=== PATIENT | female | born 1955 | race Caucasian/White ===

== ENCOUNTER 2017-10-28 13:11 | Inpatient (IN) | payer SELFPAY ==
[2017-10-28] VITALS (23 sets, daily range): BP systolic 126–182; BP diastolic 84–145; PULSE 87–159; RESP 14–31; TEMP 36.4–36.8; O2SAT 93–97; BMI 45.4; BMI 44.6
--- NOTE | 2017-10-28 13:41 | EKG12_ITS ---
Test Reason : A FIB Blood Pressure : / mmHG Vent. Rate : 172 BPM Atrial Rate : 150 BPM P-R Int : 000 ms QRS Dur : 076 ms QT Int : 284 ms P-R-T Axes : 000 -09 015 degrees QTc Int : 480 ms Atrial fibrillation Nonspecific ST and T wave abnormality Abnormal ECG Confirmed by JONATHAN CANAS, AIRAM ([id number]), assistant film editor SHANELLE SAMS ([id number]) on 10/30/2017 1:00:47 PM Referred By: WILTON Confirmed By:AIRAM CASTILLO MD
--- NOTE | 2017-10-28 13:41 | RAD_ITS ---
STUDY: X-RAY CHEST REASON FOR EXAM: Female, 62 years old. Palpitations. TECHNIQUE: Single AP portable view of the chest. COMPARISON: None. FINDINGS: EKG electrodes are seen. There is evidence of vascular congestion in keeping with mild degree of CHF. Blunting of both costophrenic angles. There is moderate cardiac enlargement. Normal mediastinum and roula. Normal visualized pulmonary arteries. There is atherosclerotic tortuosity of the aortic arch and descending thoracic aorta. Normal visualized thoracic spine. Normal visualized ribs, clavicles, and shoulders. There is no demonstrated abnormality of the visualized soft tissue structures of the upper abdomen. RAD/Chest 1 View (Portable) IMPRESSION: Mild CHF with blunting of both costophrenic angles. Cardiomegaly. Electronically Signed: Alvaro Palacio MD at 14:06 EST Tel [phone], Service support ,
--- NOTE | 2017-10-28 13:44 | ED.DCSUM_ITS ---
- ER Visit Summary Date of Service: 10/28/17 Chief Complaint: [Palpitations] History of Present Illness: The patient is a 62 F [presents the emergency department with upper abdominal pain, shortness of breath, and palpitations since evening. She started with upper abdominal pain more in the middle evening. Friday afternoon she had some chest discomfort and shortness of breath. No lightheadedness or dizziness. No previous history of heart problems. She has had palpitations off and on for the last several years. She follows with Dr. Vallejo. She does have high blood pressure. She has a family history of a brother with a heart transplant in several bypass surgeries prior to that. Her other brother does have atrial fibrillation. She has no PE or DVT risk factors.] Physical Examination: [] Blood pressure 164/84 heart rate 151 Obese no acute distress WN WD NAD PERRL EOMI MMM NECK supple and nontender, no masses Irregularly irregular tachycardic no murmur rub or gallop, no peripheral edema, symmetric radial pulses CTAB no respiratory distress ABDOMEN is soft and nontender, normal bowel sounds, no distension, no rebound or guarding SKIN is warm and dry no rashes Alert and Oriented x3, CN II-XII in tact, no motor or sensory deficits, gait normal No lymphadenopathy Anxious Test Results: [] Emergency Department Course and Treatment: [EKG was obtained and is atrial fibrillation with rapid ventricular response at a rate of [address]-T wave changes likely rate related. Patient was given 20 mg of diltiazem. Her heart rate improved to the 120s. Screening labs show mild elevation of the T bili. Chest x-ray shows mild CHF. Patient was started on a diltiazem drip. She will be admitted to the hospital. She remained stable.] Treatment Plan: [] Disposition: [Admit] Impression: [1. Atrial fibrillation with RVR 2. Mild CHF] This note was generated with [employer] dictation software. It may contain incorrect words, spelling, and punctuation that were not noted in review of the chart prior to signing ED Disposition - Plan for ED Patient: Chief Complaint: Palpitations Referrals: NOT,DEFINED [NON-STAFF] -
[2017-10-28] MEDS: 0.9% Normal Saline 1,000 ML 150 ML IV (13:51)
[2017-10-28] MEDS: dilTIAZem 25 MG/5 ML Vial 20 MG IV BOLUS (13:51)
[2017-10-28] MEDS: Aspirin 81 MG TAB.CHEW 324 MG PO (13:51)
[2017-10-28 13:58] LABS: Absolute Lymphocyte Count 1.66 X10^3/ul (0.83-4.51); Absolute Neutrophil Count 5.9 X10^3/uL (2.0-7.7); Basophil# 0.03 X10^3/uL; Basophil% 0.4 % (0-1); Eosinophil# 0.11 X10^3/uL; Eosinophils% 1.3 % (0-5); Hematocrit 45.9 % (37-47); Hemoglobin 15.1 g/dl (12.0-15.0); Lymphocyte # 1.66 X10^3/ul (4.0); Lymphocyte % 20.3 % (19-41); Mean Corp Hgb Conc 32.9 g/gl (32-36); Mean Corpuscular Hgb 28.9 pg (27.0-32.0); Mean Corpuscular Volume 87.9 fL (81-99); Mean Platelet Vol. 11.5 fl (6.2-12.0); Monocyte# 0.44 X10^3/uL; Monocyte% 5.4 % (0-10); Neutrophil # 5.92 X10^3/uL (2.7-7.7); Neutrophil % 72.5 % (47-70); Platelet Count 236 K/mm3 (150-450); RBC Distribution Width CV 14.4 % (11.6-14.6); Red Blood Count 5.22 M/mm3 (4.2-5.4); White Blood Count 8.2 K/mm3 (4.4-11.0)
[2017-10-28 14:00] LABS: POSITIVE COUNT NO; POSITIVE DIFFERENTIAL NO; POSITIVE MORPHOLOGY NO
[2017-10-28 14:59] LABS: ALB/GLOB Ratio 1.3 RATIO (0.9-2.4); AST(SGOT) 37 U/L (15-37); Alanine Aminotransfer ALT/SGPT 53 U/L (13-56); Albumin, Serum 4.3 g/dL (3.2-5.0); Alkaline Phosphatase 76 U/L (45-117); Anion Gap 11 (5-15); BUN 15 mg/dL (7-18); BUN/Creat Ratio 15.9 RATIO (10-20); Calcium,Total 9.2 mg/dL (8.5-10.1); Chloride 110 mmol/L (98-107); Creatinine, Serum 0.94 mg/dL (0.55-1.02); EST Glomerular Filtration Rate 64 mL/min (>60); Est Glom Filt Rate - Afr Amer 77 mL/min (>60); Estimated Creatinine Clearance 54.41 ml/min; Globulin 3.4 g/dL (2.2-4.2); Glucose 135 mg/dL (74-106); Potassium 3.6 mmol/L (3.5-5.1); Protein, Total 7.7 g/dL (6.4-8.2); Sodium Level 143 mmol/L (136-145)
--- NOTE | 2017-10-28 16:14 | NURSING ---
DR KIKA BRIGGS
--- NOTE | 2017-10-28 17:23 | NURSING ---
105 AFIB WITH RVR IMAMURA
[2017-10-28] MEDS: Furosemide 40 MG/4 ML Vial IV ×2 (17:43→21:44)
[2017-10-28 19:11] LABS: International Normalized Ratio 1.1; Prothrombin Time (Protime)PT. 13.8 SECONDS (11.7-14.9)
[2017-10-28 19:12] LABS: Partial Thromboplast Time 48.1 Seconds (24.1-36.2)
[2017-10-28] MEDS: HEPARIN/D5w 25,000 UNITS 25,000 UNITS/250 ML IV.SOLN. 16 UNITS IV (19:18)
--- NOTE | 2017-10-28 19:56 | PCM.HP.STD ---
Problem List (1) Atrial fibrillation with RVR Status: Acute History of Present Illness Date of Admission: 10/28/17 Chief Complaint: Palpitation, abdominal pain Patient is a 62 years old female, presents with complaining of palpitation for 5 days. She thought that her heart was racing. She also had intermittent shortness of breath with symptoms of orthopnea, but denied of any peripheral edema. She denied of any cough or chest pain, but had some intermittent epigastric discomfort which was unaffected by meals. In ED, her heart rate was in 170's. Diltiazem drip was started. About 3 years ago, she thought that she had atrial fibrillation. She consulted her PCP, who had started some of diagnostic studies. Apparently, EKG was normal. Echo was done in January 2015, which showed normal except for mild MR and mild LVH. She was doing well since then until this episode. Past Medical History Allergies No Known Allergies Allergy (Verified 10/28/17 13:17) Home Medications: Ambulatory Orders Medication Instructions Recorded Biotin 1 tab PO DAILY 10/28/17 Cholecalciferol (Vitamin D3) 5,000 unit PO BID 10/28/17 [Vitamin D3] Krill Oil 500 mg PO DAILY 10/28/17 Multivitamin [Multiple Vitamins] 1 each PO DAILY 10/28/17 Smoking Status: Never smoker Alcohol: None Drugs: None - *Family History Sibling History Items: - - Brother has atrial fibrillation Review of Systems Comment: ROS: In general: Patient has been in good health, denied of any constitutional symptoms, such as weight loss, or gain, fever, chills, or night sweats. Patient denied of any profound fatigue. HEENT: Unremarkable. Patient denied of any dizziness, chronic headache, blurred vision, double vision, dry mouth, or nasal congestion. CV/respiratory: See HPI. GI: Patient denied any abdominal pain, nausea, vomiting, diarrhea, constipation, melena, or hematochezia. : Patient denied any significant urinary symptoms. Neurology: Unremarkable. There is no history of seizure as an adult. Psychological: Unremarkable. ?. Endocrine: Unremarkable. Musculoskeletal: Unremarkable. VTE Information - Inpt Only VTE Present on Admission: No VTE Mechan Device Prophylaxis: None VTE Pharm Prophylaxis ordered?: Yes Patient Problems: Active and Suspected Problems Atrial fibrillation with RVR (Acute) Objective: In general, patient is a well-nourished and developed adult. HEENT: Head is atraumatic, and normocephalic. Pupils are equal, round, and reactive to light and accommodations. Neck is supple. There is no lymphadenopathy, or thyromegaly. Oral mucosa is pink, and moist. There are no lesions. Heart: Heart is tachycardiac, irregular. There is no extra heart sounds, or murmurs. S1 and S2 are present. Point of maximal impulse is not displaced. Lungs: Lungs are clear to auscultation bilaterally. There is no wheezing, or crackles. Abdomen: Abdominal wall is non-tender, and non-distended. There is no palpable mass or organomegaly. Normoactive bowel sounds are present. Extremities: There is no cyanosis or clubbing. Peripheral pulses are palpable. There is no edema. Skin: There are no any skin discoloration or lesions. Neurological: CN II - XII are intact. Sensory and motor functions are grossly normal with no obvious deficit. Cerebellar functions are within normal range. Gait was not tested. - Physical Exam Vital Signs Temp Pulse Resp BP Pulse Ox 97.6 F L 133 H 26 H 143/93 H 97 10/28/17 19:30 10/28/17 19:30 10/28/17 19:30 10/28/17 19:30 10/28/17 19:30 Oxygen Flow Rate 2 Oxygen Delivery Method Room Air Weight: 272 lb 0.807 oz Body Mass Index (BMI) 44.6 Laboratory Tests Past 24 Hrs 10/28/17 10/28/17 18:45 18:45 PT 13.8 INR 1.1 APTT 48.1 H Troponin I Pending Laboratory Results - last 24 hr 10/28/17 10/28/17 10/28/17 13:40 13:40 13:40 WBC 8.2 RBC 5.22 Hgb 15.1 H Hct 45.9 MCV 87.9 MCH 28.9 MCHC 32.9 RDW 14.4 RDW Differential 46.0 H Plt Count 236 MPV 11.5 Immature Gran % (Auto) 0.100 Neut % (Auto) 72.5 H Lymph % (Auto) 20.3 [place] % (Auto) 5.4 Eos % (Auto) 1.3 Baso % (Auto) 0.4 Absolute Neuts (auto) 5.9 Absolute Lymphs (auto) 1.66 Total Counted Not Reportable PT INR APTT Sodium 143 Potassium 3.6 Chloride 110 H Carbon Dioxide 22.0 Anion Gap 11 BUN 15 Creatinine 0.94 Estim Creat Clear Calc 54.41 Est GFR (MDRD) Af Amer 77 Est GFR (MDRD) Non-Af 64 BUN/Creatinine Ratio 15.9 Glucose 135 H Calcium 9.2 Total Bilirubin 1.30 H AST 37 ALT 53 Alkaline Phosphatase 76 Troponin I < 0.02 Total Protein 7.7 Albumin 4.3 Globulin 3.4 Albumin/Globulin Ratio 1.3 TSH 1.10 10/28/17 18:45 WBC RBC Hgb Hct MCV MCH MCHC RDW RDW Differential Plt Count MPV Immature Gran % (Auto) Neut % (Auto) Lymph % (Auto) [place] % (Auto) Eos % (Auto) Baso % (Auto) Absolute Neuts (auto) Absolute Lymphs (auto) Total Counted PT 13.8 INR 1.1 APTT 48.1 H Sodium Potassium Chloride Carbon Dioxide Anion Gap BUN Creatinine Estim Creat Clear Calc Est GFR (MDRD) Af Amer Est GFR (MDRD) Non-Af BUN/Creatinine Ratio Glucose Calcium Total Bilirubin AST ALT Alkaline Phosphatase Troponin I Total Protein Albumin Globulin Albumin/Globulin Ratio TSH Diagnostic Data Chest X-Ray 10/28/17 13:41 IMPRESSION: Mild CHF with blunting of both costophrenic angles. Cardiomegaly. Electronically Signed: Alvaro Palacio MD at 14:06 EST Tel [phone], Service support , Assessment/Plan Active and Suspected Problems Atrial fibrillation with RVR (Acute) Patient is a 62 years old female, presents with complaining of palpitation for 5 days. She thought that her heart was racing. She also had intermittent shortness of breath with symptoms of orthopnea, but denied of any peripheral edema. She denied of any cough or chest pain, but had some intermittent epigastric discomfort which was unaffected by meals. In ED, her heart rate was in 170's. Diltiazem drip was started. About 3 years ago, she thought that she had atrial fibrillation. She consulted her PCP, who had started some of diagnostic studies. Apparently, EKG was normal. Echo was done in January 2015, which showed normal except for mild MR and mild LVH. She was doing well since then until this episode. #1 atrial fibrillation with RVR. Continue diltiazem drip. Lasix 40 mg IV x 1 given to reduce preload. 2D-echocardiogram ordered for tomorrow. TSH is normal. Telemetry monitoring. Cardiology consulted also. Heparin drip was started after discussing with cardiology for possible cardioversion if her RVR is refractory. She is [id number] = 1 to 2, depending on finding from 2D-echocardiogram. Aspirin was given. #2 CHF. Etiology is not clear. Possibly with rate dependent HF with normal heart functions. Await 2D-echocardiogram. #3 Epigastric discomfort. Likely due to congestive gastropathy due to above. Continue H2 liliana. Follow clinically. VTE prophylaxis: heparin drip. GI prophylaxis: H2 liliana po. She is full code. Disposition: home in 2 to 3 days. Code Visit Inpatient E&M: 77294 Init Hosp L3
--- NOTE | 2017-10-28 20:42 | PCM.CONS.C ---
Problem List (1) Atrial fibrillation with RVR Status: Acute (2) CHF (congestive heart failure) Status: Acute Qualifiers: Heart failure chronicity: unspecified (3) HTN (hypertension) Status: Chronic Reason for Consult Date of Consultation: 10/28/17 History of Present Illness: The patient is a 62 year old white female who presents for evaluation of atrial fibrillation with rapid ventricular response, congestive heart failure, and hypertension. The patient states that in the past she has had episodes of palpitations. She had been evaluated in the past with an ECG (01/06/2015: Normal sinus rhythm; leftward axis; poor R-wave progression). She does not recall having any other type of ambulatory bus monitor. She did undergo evaluation with a transthoracic echocardiogram. This was performed on 01/25/2015. According to report the left ventricle was normal, the LVEF was 65%, there was mild concentric LVH, mild MR, trivial TR, and an estimated RV systolic pressure of 34 mmHg. There was also decreased diastolic compliance. He does not recall any other cardiovascular testing. She does not recall being treated for her palpitations. She notes that recently she has felt like she had the flulike symptoms. She based this on abdominal discomfort and not feeling well. This lasted from last to last Friday. Following improvement in her abdominal discomfort she noted progressive shortness of breath and dyspnea. She also experienced symptoms compatible with orthopnea. She did not sense a change in her heart rate or rhythm. There had been no near syncope or syncope. Since that time she has noted progressive shortness of breath and dyspnea with activity. Thus she elected to present to urgent care today for evaluation. Upon presentation she was told her heart rate was rapid and irregular. She was referred to the emergency department for evaluation. There she was evaluated and found to be in atrial fibrillation with rapid ventricular response. She had a chest x-ray performed which demonstrated a somewhat diminished inspiratory effort, increased pulmonary vascularity, and blunting of both costophrenic angles compatible with bilateral pleural effusions. She was then placed in the PCU for further evaluation and care. She was started on IV diltiazem and IV heparin. She was also needed with IV furosemide. At the present time she denies any ongoing chest discomfort. She states her breathing appears somewhat improved while she is resting. She notes worsens when she is up and ambulating. Still has not been able to be supine comfortably. She states throughout this process she has not demonstrated any obvious peripheral pitting edema. [] Past Medical History Allergies/Adverse Reactions: Allergies No Known Allergies Allergy (Verified 10/28/17 13:17) Home Medications: Ambulatory Orders Medication Instructions Recorded Biotin 1 tab PO DAILY 10/28/17 Cholecalciferol (Vitamin D3) 5,000 unit PO BID 10/28/17 [Vitamin D3] Krill Oil 500 mg PO DAILY 10/28/17 Multivitamin [Multiple Vitamins] 1 each PO DAILY 10/28/17 Past Medical History (Chronic Problems): Chronic Problems HTN (hypertension) (Chronic) - *Family History Sibling History Items: - - Brother has atrial fibrillation: More than 1 brother has had open heart surgery ; one brother has had a cardiac transplant Smoking Status: Never smoker Alcohol: None Drugs: None Review of Systems - Review of Systems General: Denies: Fever, Night Sweats, Fatigue Cardiovascular: Reports: Shortness of Breath, Shortness of Breath with Exertion, Orthopnea, PND. Denies: Chest Discomfort, Peripheral Edema, Palpitations, Lightheadedness, Dizziness, Near Syncope, Syncope Respiratory: Reports: Shortness of Breath. Denies: Cough, Sputum Production, Hemoptysis Gastrointestinal: Denies: Hematemesis, Hematochezia, Melena Genitourinary: Denies: Dysuria, Hematuria Skin: Denies: Rash Subjectve: This is a 62-year-old white female who appears to be resting reasonably comfortably in no acute distress. Objective: Vital Signs Temp Pulse Resp BP Pulse Ox 97.6 F L 130 H 26 H 151/99 H 94 10/28/17 20:00 10/28/17 20:00 10/28/17 20:00 10/28/17 20:00 10/28/17 20:00 Oxygen Flow Rate 2 Oxygen Delivery Method Room Air Weight: 272 lb 0.807 oz Body Mass Index (BMI) 44.6 General: Awake, Alert, Oriented x 3, Cooperative, No Acute Distress, Obese Neck: No JVD Lungs: Rales - Talha Bases Cardiovascular: Irregular Rhythm, Normal S1, Normal S2 Vascular: No Carotid Bruits Abdomen: Bowel Sounds Present, Soft, Non Tender, Obese Extremities: No Cyanosis, No Clubbing, No edema Neurological: No Focal Motor or Sensory Deficit 10/28/17 18:45: PT 13.8, INR 1.1, APTT 48.1 H Rhythm: Atrial fibrillation EKG: Atrial fibrillation with rapid ventricular response; nonspecific ST and T-wave abnormality ECHO: As noted above CXR: As noted above Assessment/Plan 1. Atrial fibrillation with rapid ventricular response At the present time the patient remains in atrial fibrillation. Her ventricular rate remains elevated. It becomes more elevated with any activity. The etiology of her atrial fibrillation may be multifactorial. This could be related to hypertension. Same time there is concerns based on her cardiovascular risks as to whether or not she could have other forms of cardiovascular disease. Other noncardiac etiologies have not necessarily been excluded. She will continue to be monitored. She will continue on rate control therapy. At the moment this includes IV diltiazem. She will also be given IV digitalis to see if this does help slow her rate. She has been placed on IV heparin. She will have further evaluation with a transthoracic echocardiogram. This will be to evaluate her atrial size and ventricular size and function. Over time she may need further medical management and attempt to regain sinus rhythm and/or synchronized biphasic DC cardioversion. 2. Congestive heart failure She does have signs and symptoms compatible with underlying CHF. This may be secondary to her atrial fibrillation with rapid ventricular response and a possible tachycardic induced event. However, other etiologies cannot be excluded. At the moment she will continue to be monitored. She will be treated for her atrial dysrhythmia. She will have further evaluation of her ventricular size, wall motion, systolic function with a transthoracic echocardiogram. Depending upon her clinical course she may need further noninvasive or invasive evaluation. In the meantime she will continue medical therapy. It will include diuretic therapy. He will also include the initiation of afterload reducing therapy. 3. Hypertension She was noted to be hypertensive upon arrival. It is unclear as to how well controlled her blood pressure has been. Certainly if her blood pressure has not been under control this could contribute to her atrial dysrhythmia and her CHF. Thus her blood pressure will be monitored and she will initiate medical therapy and attempt to start bringing her blood pressure under better control. Comment: The above was discussed and reviewed with the patient and Dr. Díaz. This note was generated with [employer] software. Every effort was made to ensure accuracy, however, computerized coating manager mistakes may persist.
--- NOTE | 2017-10-28 20:54 | CON.PCM_ITS ---
Problem List (1) Atrial fibrillation with RVR Status: Acute (2) CHF (congestive heart failure) Status: Acute Qualifiers: Heart failure chronicity: unspecified (3) HTN (hypertension) Status: Chronic Reason for Consult Date of Consultation: 10/28/17 History of Present Illness: The patient is a 62 year old white female who presents for evaluation of atrial fibrillation with rapid ventricular response, congestive heart failure, and hypertension. The patient states that in the past she has had episodes of palpitations. She had been evaluated in the past with an ECG (01/06/2015: Normal sinus rhythm; leftward axis; poor R-wave progression). She does not recall having any other type of ambulatory cook pickled meat. She did undergo evaluation with a transthoracic echocardiogram. This was performed on 2014. According to report the left ventricle was normal, the LVEF was 65%, there was mild concentric LVH, mild MR, trivial TR, and an estimated RV systolic pressure of 34 mmHg. There was also decreased diastolic compliance. He does not recall any other cardiovascular testing. She does not recall being treated for her palpitations. She notes that recently she has felt like she had the flulike symptoms. She based this on abdominal discomfort and not feeling well. This lasted from last to last Friday. Following improvement in her abdominal discomfort she noted progressive shortness of breath and dyspnea. She also experienced symptoms compatible with orthopnea. She did not sense a change in her heart rate or rhythm. There had been no near syncope or syncope. Since that time she has noted progressive shortness of breath and dyspnea with activity. Thus she elected to present to urgent care today for evaluation. Upon presentation she was told her heart rate was rapid and irregular. She was referred to the emergency department for evaluation. There she was evaluated and found to be in atrial fibrillation with rapid ventricular response. She had a chest x-ray performed which demonstrated a somewhat diminished inspiratory effort, increased pulmonary vascularity, and blunting of both costophrenic angles compatible with bilateral pleural effusions. She was then placed in the PCU for further evaluation and care. She was started on IV diltiazem and IV heparin. She was also needed with IV furosemide. At the present time she denies any ongoing chest discomfort. She states her breathing appears somewhat improved while she is resting. She notes worsens when she is up and ambulating. Still has not been able to be supine comfortably. She states throughout this process she has not demonstrated any obvious peripheral pitting edema. [] Past Medical History Allergies/Adverse Reactions: Allergies No Known Allergies Allergy (Verified 10/28/17 13:17) Home Medications: Ambulatory Orders Medication Instructions Recorded Biotin 1 tab PO DAILY 10/28/17 Cholecalciferol (Vitamin D3) 5,000 unit PO BID 10/28/17 [Vitamin D3] Krill Oil 500 mg PO DAILY 10/28/17 Multivitamin [Multiple Vitamins] 1 each PO DAILY 10/28/17 Past Medical History (Chronic Problems): Chronic Problems HTN (hypertension) (Chronic) - *Family History Sibling History Items: - - Brother has atrial fibrillation: More than 1 brother has had open heart surgery ; one brother has had a cardiac transplant Smoking Status: Never smoker Alcohol: None Drugs: None Review of Systems - Review of Systems General: Denies: Fever, Night Sweats, Fatigue Cardiovascular: Reports: Shortness of Breath, Shortness of Breath with Exertion , Orthopnea, PND. Denies: Chest Discomfort, Peripheral Edema, Palpitations, Lightheadedness, Dizziness, Near Syncope, Syncope Respiratory: Reports: Shortness of Breath. Denies: Cough, Sputum Production, Hemoptysis Gastrointestinal: Denies: Hematemesis, Hematochezia, Melena Genitourinary: Denies: Dysuria, Hematuria Skin: Denies: Rash Subjectve: This is a 62-year-old white female who appears to be resting reasonably comfortably in no acute distress. Objective: Vital Signs Temp Pulse Resp BP Pulse Ox 97.6 F L 130 H 26 H 151/99 H 94 10/28/17 20:00 10/28/17 20:00 10/28/17 20:00 10/28/17 20:00 10/28/17 20:00 Oxygen Flow Rate 2 Oxygen Delivery Method Room Air Weight: 272 lb 0.807 oz Body Mass Index (BMI) 44.6 General: Awake, Alert, Oriented x 3, Cooperative, No Acute Distress, Obese Neck: No JVD Lungs: Rales - Talha Bases Cardiovascular: Irregular Rhythm, Normal S1, Normal S2 Vascular: No Carotid Bruits Abdomen: Bowel Sounds Present, Soft, Non Tender, Obese Extremities: No Cyanosis, No Clubbing, No edema Neurological: No Focal Motor or Sensory Deficit 10/28/17 18:45: PT 13.8, INR 1.1, APTT 48.1 H Rhythm: Atrial fibrillation EKG: Atrial fibrillation with rapid ventricular response; nonspecific ST and T- wave abnormality ECHO: As noted above CXR: As noted above Assessment/Plan 1. Atrial fibrillation with rapid ventricular response At the present time the patient remains in atrial fibrillation. Her ventricular rate remains elevated. It becomes more elevated with any activity. The etiology of her atrial fibrillation may be multifactorial. This could be related to hypertension. Same time there is concerns based on her cardiovascular risks as to whether or not she could have other forms of cardiovascular disease. Other noncardiac etiologies have not necessarily been excluded. She will continue to be monitored. She will continue on rate control therapy. At the moment this includes IV diltiazem. She will also be given IV digitalis to see if this does help slow her rate. She has been placed on IV heparin. She will have further evaluation with a transthoracic echocardiogram. This will be to evaluate her atrial size and ventricular size and function. Over time she may need further medical management and attempt to regain sinus rhythm and/or synchronized biphasic DC cardioversion. 2. Congestive heart failure She does have signs and symptoms compatible with underlying CHF. This may be secondary to her atrial fibrillation with rapid ventricular response and a possible tachycardic induced event. However, other etiologies cannot be excluded. At the moment she will continue to be monitored. She will be treated for her atrial dysrhythmia. She will have further evaluation of her ventricular size, wall motion, systolic function with a transthoracic echocardiogram. Depending upon her clinical course she may need further noninvasive or invasive evaluation. In the meantime she will continue medical therapy. It will include diuretic therapy. He will also include the initiation of afterload reducing therapy. 3. Hypertension She was noted to be hypertensive upon arrival. It is unclear as to how well controlled her blood pressure has been. Certainly if her blood pressure has not been under control this could contribute to her atrial dysrhythmia and her CHF. Thus her blood pressure will be monitored and she will initiate medical therapy and attempt to start bringing her blood pressure under better control. Comment: The above was discussed and reviewed with the patient and Dr. Díaz. This note was generated with [employer] software. Every effort was made to ensure accuracy, however, computerized fish protector mistakes may persist.
[2017-10-28] MEDS: Digoxin 250 MCG/ML Ampul 500 MCG IV (21:45)
[2017-10-28] MEDS: Lisinopril 10 MG Tablet PO (22:13)
[2017-10-28] MEDS: Famotidine 20 MG Tablet PO (22:13)
[2017-10-28 22:27] LABS: BNP,B-Type NATRIURETIC PEPTIDE 238.7 pg/mL (0-100)
[2017-10-29] VITALS (27 sets, daily range): BP systolic 94–140; BP diastolic 44–92; PULSE 65–109; RESP 16–28; TEMP 36.6–37.1; O2SAT 91–96
[2017-10-29 01:47] LABS: Partial Thromboplast Time 249.2 Seconds (24.1-36.2)
[2017-10-29] MEDS: 0.9% NaCl Peripheral Flush Adult/Peds IV ×3 (02:06→15:00)
[2017-10-29 04:50] LABS: Hematocrit 43.6 % (37-47); Hemoglobin 14.4 g/dl (12.0-15.0); Mean Corpuscular Hgb 29.1 pg (27.0-32.0); Mean Corpuscular Volume 88.1 fL (81-99); Mean Platelet Vol. 10.8 fl (6.2-12.0); Platelet Count 212 K/mm3 (150-450); RBC Distribution Width CV 14.5 % (11.6-14.6); RBC Distribution Width SD 46.3 fl (35.1-43.9); Red Blood Count 4.95 M/mm3 (4.2-5.4); White Blood Count 7.5 K/mm3 (4.4-11.0)
[2017-10-29 04:55] LABS: Scan Indicated on CBC? Y/N NO
[2017-10-29 05:19] LABS: Anion Gap 10 (5-15); BUN 14 mg/dL (7-18); BUN/Creat Ratio 15.2 RATIO (10-20); Calcium,Total 8.7 mg/dL (8.5-10.1); Chloride 108 mmol/L (98-107); Cholesterol 176 mg/dL (200); Creatinine, Serum 0.92 mg/dL (0.55-1.02); EST Glomerular Filtration Rate 65 mL/min (>60); Est Glom Filt Rate - Afr Amer 79 mL/min (>60); Estimated Creatinine Clearance 55.59 ml/min; Glucose 109 mg/dL (74-106); High Density Lipoprotein 42 mg/dL; Potassium 3.7 mmol/L (3.5-5.1); Sodium Level 143 mmol/L (136-145); Triglycerides 126 mg/dL; Very Low Density Lipoprotein 25 mg/dL (5-40)
--- NOTE | 2017-10-29 05:55 | EKG12_ITS ---
Test Reason : AM EKG Blood Pressure : / mmHG Vent. Rate : 077 BPM Atrial Rate : 117 BPM P-R Int : 000 ms QRS Dur : 080 ms QT Int : 434 ms P-R-T Axes : 000 -14 -36 degrees QTc Int : 491 ms Atrial fibrillation T wave abnormality, consider anterolateral ischemia Prolonged QT Abnormal ECG When compared with ECG of 28-OCT-2017 13:28, MANUAL COMPARISON REQUIRED, DATA IS UNCONFIRMED Confirmed by JONATHAN CANAS, AIRAM ([id number]), news copy editor SHANELLE SAMS ([id number]) on 10/30/2017 1:08:41 PM Referred By: KIKA Confirmed By:AIRAM CASTILLO MD
--- NOTE | 2017-10-29 05:55 | ECHOD_ITS ---
Reason For Study: Afib, Aflutter Procedure This was a 2D Doppler, Color Flow transthoracic echocardiogram. The exam was of fair technical quality due to body habitus. Exam performed portable in patient room. Left Ventricle Normal LV size. Left ventricular systolic function is normal. The estimated ejection fraction is 60 %. Unable to assess diastolic dysfunction. No regional wall motion abnormalities noted. Right Ventricle Normal RV size. Normal systolic function. Atria Mild to moderate left atrial enlargement. Normal right atrium. No doppler evidence for ASD. Mitral Valve There is no mitral annular calcification. Normal mitral valve. Mild-Moderate (1-2+) mitral valve insufficiency. Tricuspid Valve Normal tricuspid valve. Mild tricuspid valve insufficiency. Right ventricular systolic pressure estimated to be 32 mmHg. Aortic Valve Trisinus/trileaflet aortic valve. Normal aortic valve. Pulmonic Valve The pulmonic valve is not well visualized. Great Vessels Normal sized aortic root. Pericardium/Pleural No pericardial effusion. Echolucency c/w a pleural effusion. MMode/2D Measurements & Calculations LVIDd: 4.4 cm IVSd: 1.2 cm Ao root diam: 3.1 cm LVIDs: 3.2 cm LVPWd: 1.2 cm LA dimension: 4.7 cm RVDd: 4.9 cm FS: 26.1 % LAV(MOD-bp): 65.2 ml LA A4 area: 24.5 cm2 RA A4 area: 14.6 cm2 LAV(MOD-bp) Indexed: 28.9 ml/m2 LAV(MOD-sp2): 52.8 ml LAV(MOD-sp4): 77.9 ml Doppler Measurements & Calculations MV E max henrry: 97.5 cm/sec Lat Peak E' Henrry: 10.6 cm/sec Med Peak E' Henrry: 8.0 cm/sec E/E' lat: 9.2 E/E' med: 12.2 Ao V2 max: 147.5 cm/sec LV V1 max: 131.0 cm/sec PA V2 max: 109.0 cm/sec Ao max P.8 mmHg LV V1 max P.9 mmHg Ao V2 mean: 102.8 cm/sec Ao mean P.7 mmHg Ao V2 VTI: 25.7 cm TR max henrry: 267.5 cm/sec TR max P.6 mmHg Interpretation Summary Left ventricular systolic function is normal. The estimated ejection fraction is 60 %. Mild to moderate left atrial enlargement. Mild-Moderate (1-2+) mitral valve insufficiency. Mild tricuspid valve insufficiency. Echolucency c/w a pleural effusion. Right ventricular systolic pressure estimated to be 32 mmHg. Ordering Physician: Berry Díaz Performed By: Jasmyn Osorio, BRET, RVT
--- NOTE | 2017-10-29 08:45 | PN.CARD_ITS ---
Subjectve: The patient states that she feels better today. She notices an improvement in her shortness of breath. Objective: Vital Signs Temp Pulse Resp BP Pulse Ox 98.1 F 81 20 H 114/67 92 10/29/17 08:00 10/29/17 08:00 10/29/17 08:00 10/29/17 08:00 10/29/17 08:00 Oxygen Flow Rate 2 Oxygen Delivery Method Room Air Weight: 264 lb 5.348 oz Body Mass Index (BMI) 44.6 Intake and Output for Last 24 Hours 10/27/17 10/28/17 10/29/17 23:59 23:59 23:59 Intake Total 120 / 120 Output Total 1500 / 1500 500 / 500 Balance -1380 / -1380 -500 / -500 General: Awake, Alert, Oriented x 3, Cooperative, No Acute Distress, Obese Neck: No JVD Lungs: Diminished Talha Bases Cardiovascular: Irregular Rhythm, Normal S1, Normal S2 Abdomen: Bowel Sounds Present, Soft, Non Tender, Obese Extremities: No edema 10/28/17 18:45: Troponin I < 0.02 10/28/17 18:45: PT 13.8, INR 1.1, APTT 48.1 H 10/28/17 22:06: Troponin I < 0.02 10/29/17 01:13: APTT 249.2 H* 10/29/17 04:42: WBC 7.5, RBC 4.95, Hgb 14.4, Hct 43.6, MCV 88.1, MCH 29.1, MCHC 33.0, RDW 14.5, RDW Differential 46.3 H, Plt Count 212, MPV 10.8 10/29/17 04:42: Sodium 143, Potassium 3.7, Chloride 108 H, Carbon Dioxide 25.0, Anion Gap 10, BUN 14, Creatinine 0.92, Est GFR (MDRD) Af Amer 79, Est GFR (MDRD ) Non-Af 65, BUN/Creatinine Ratio 15.2, Glucose 109 H, Calcium 8.7, Triglycerides 126, Cholesterol 176, LDL Cholesterol 109, VLDL Cholesterol 25, HDL Cholesterol 42 10/29/17 04:42: Troponin I < 0.02 10/29/17 05:58: APTT 79.0 H Rhythm: atrial fibrillation EKG: atrial fibrillation; T wave abnormality: consider anterior myocardial ischemia ECHO: pending Assessment/Plan 1. Atrial fibrillation with rapid ventricular response At the present time the patient remains in atrial fibrillation. Status post initiation of digoxin 500 mcg IV ?1 her heart rate came under better control. He continues on anticoagulant therapy with IV heparin. The etiology of her atrial fibrillation may be multifactorial. This could be related to hypertension. Same time there is concerns based on her cardiovascular risks as to whether or not she could have other forms of cardiovascular disease. Other noncardiac etiologies have not necessarily been excluded. She will continue to be monitored. She will continue on rate control therapy. She has been placed on IV heparin. She will have further evaluation with a transthoracic echocardiogram. This will be to evaluate her atrial size and ventricular size and function. Over time she may need further medical management and attempt to regain sinus rhythm and/or synchronized biphasic DC cardioversion. 2. Congestive heart failure She does have signs and symptoms compatible with underlying CHF. This may be secondary to her atrial fibrillation with rapid ventricular response and a possible tachycardic induced event. However, other etiologies cannot be excluded. At the moment she will continue to be monitored. She will be treated for her atrial dysrhythmia. She will have further evaluation of her ventricular size, wall motion, systolic function with a transthoracic echocardiogram. Depending upon her clinical course she may need further noninvasive or invasive evaluation. In the meantime she will continue medical therapy. It will include diuretic therapy. He will also include the initiation of afterload reducing therapy. 3. Hypertension S/P post initiation of medical therapy her blood pressure appears to be coming under better control. Comment: The above was discussed and reviewed with the patient. This note was generated with [employer] software. Every effort was made to ensure accuracy, however, computerized commodity management specialist mistakes may persist.
[2017-10-29] MEDS: Lisinopril 10 MG Tablet PO ×2 (09:38→21:19)
[2017-10-29] MEDS: Aspirin 325 MG Tablet PO (09:38)
[2017-10-29] MEDS: Famotidine 20 MG Tablet PO ×2 (09:38→21:18)
[2017-10-29] MEDS: Furosemide 40 MG/4 ML Vial IV (09:39)
--- NOTE | 2017-10-29 10:28 | CASEMGMT ---
SW spoke with patient as she is self pay. She said she was on Cobra until February of last year. She looked at buying insurance, but the cheapest she could find was around $500. She turns 63 and will be eligible for Medicare in April of this year. She was hoping she would be well until then. SW told her about various medication assistance programs, [facility] and [place] [facility]. SW also gave her packets for [facility], [place] [employer], [facility], and [email or web address]. SW also talked to her about Healthcare Power of Dynamics Ax Solution Architect and Healthcare Living Will. She was also given copies of these documents per her request. SW will watch for d/c medications to see if patient may need assist due to not having insurance. Sheryl COBB MSW
--- NOTE | 2017-10-29 10:38 | CASEMGMT ---
See Social Work Assessment SW spoke with patient as she is self pay. She said she was on Cobra until February of last year. She looked at buying insurance, but the cheapest she could find was around $500. She turns 63 and will be eligible for Medicare in April of this year. She was hoping she would be well until then. SW told her about various medication assistance programs, [facility] and [place] [facility]. SW also gave her packets for [facility], [place] [employer], [facility], and [employer] SW also talked to her about Healthcare Power of Senior Interior Designer and Healthcare Living Will. She was also given copies of these documents per her request. SW will watch for d/c medications to see if patient may need assist due to not having insurance. Sheryl COBB MSW
[2017-10-29 12:36] LABS: Partial Thromboplast Time 89.3 Seconds (24.1-36.2)
--- NOTE | 2017-10-29 12:54 | PCM.PN.HOSP ---
Patient Problems: Active and Suspected Problems Atrial fibrillation with RVR (Acute) CHF (congestive heart failure) (Acute) Subjective: Breathing better. Never had any LE edema. Vitals/I&O's: Vital Signs Temp Pulse Resp BP Pulse Ox 36.7 C 92 20 H 116/82 H 92 10/29/17 08:00 10/29/17 12:00 10/29/17 12:00 10/29/17 12:00 10/29/17 12:00 Oxygen Flow Rate 2 Oxygen Delivery Method Room Air Weight: 119.9 kg Body Mass Index (BMI) 44.6 Intake and Output for Last 24 Hours 10/27/17 10/28/17 10/29/17 23:59 23:59 23:59 Intake Total 120 / 120 1213 / 1213 Output Total 1500 / 1500 500 / 500 Balance -1380 / -1380 713 / 713 General: Alert, Cooperative, No apparent distress HEENT: Atraumatic, Normocephalic Neck: No JVD, No Nodes, Thyroid Normal Size and Texture Lungs: Clear to auscultation, Normal air movement, No rhonchi, No wheeze Cardiovascular: Normal S1, Normal S2, Irregular Rate Abdomen: Bowel Sounds Present, Soft, Non Tender, Non-Distended, No Hepato-splenomegaly, Obese Extremities: No edema, No Calf Tenderness Skin: No rashes, No breakdown Musculoskeletal: No Tenderness to Palpation of Joints or Extremities, No Muscle Wasting Psych/Mental Status: Normal Affect, Appropriate Laboratory Results 10/28/17 18:45: Troponin I < 0.02 10/28/17 18:45: PT 13.8, INR 1.1, APTT 48.1 H 10/28/17 22:06: Troponin I < 0.02 10/29/17 01:13: APTT 249.2 H* 10/29/17 04:42: WBC 7.5, RBC 4.95, Hgb 14.4, Hct 43.6, MCV 88.1, MCH 29.1, MCHC 33.0, RDW 14.5, RDW Differential 46.3 H, Plt Count 212, MPV 10.8 10/29/17 04:42: Sodium 143, Potassium 3.7, Chloride 108 H, Carbon Dioxide 25.0, Anion Gap 10, BUN 14, Creatinine 0.92, Estim Creat Clear Calc 55.59, Est GFR (MDRD) Af Amer 79, Est GFR (MDRD) Non-Af 65, BUN/Creatinine Ratio 15.2, Glucose 109 H, Calcium 8.7, Triglycerides 126, Cholesterol 176, LDL Cholesterol 109, VLDL Cholesterol 25, HDL Cholesterol 42 10/29/17 04:42: Troponin I < 0.02 10/29/17 05:58: APTT 79.0 H 10/29/17 12:05: APTT 89.3 H Current Medications Aspirin (Aspirin) 325 mg PO DAILY@0800 [facility] Last Admin: 10/29/17 09:38 Dose: 325 mg Bisacodyl (Dulcolax) 5 mg PO DAILY PRN PRN PRN Reason: Constipation Famotidine (Pepcid) 20 mg PO BID [facility] Last Admin: 10/29/17 09:38 Dose: 20 mg Heparin Sodium (Porcine) () 0 units IV UD PRN PRN Reason: Protocol Diltiazem HCl 125 mg/ Dextrose 125 mls @ 5 mls/hr CONT INF .Q25H [facility] PRN Reason: 5 MG/HR Last Admin: 10/29/17 09:46 Dose: 5 mls/hr Heparin Sodium/Dextrose () 25,000 units in 250 mls @ 16 mls/hr IV .[id number] [facility]; As Directed PRN Reason: Protocol Last Admin: 10/28/17 19:18 Dose: 16 mls/hr Lisinopril (Zestril) 10 mg PO BID [facility] Last Admin: 10/29/17 09:38 Dose: 10 mg Magnesium Hydroxide (Milk Of Magnesia) 30 ml PO DAILY PRN PRN Reason: Constipation Ondansetron HCl (Zofran) 4 mg IV Q8H PRN PRN PRN Reason: NAUSEA Sodium Chloride () 5 - 30 ml IV UD PRN PRN Reason: SALINE FLUSH Last Admin: 10/29/17 09:39 Dose: 10 ml Zolpidem Tartrate (Ambien (Generic)) 5 mg PO QHS PRN PRN PRN Reason: INSOMNIA Assessment/Plan Active and Suspected Problems Atrial fibrillation with RVR (Acute) CHF (congestive heart failure) (Acute) 1. Afib w RVR now rate-controlled CHADS VASc = [address] [place]: change dilt to PO 180 BID and dc hep and start eliquis check chemical stress in AM. 2. HFpEF improving. rec'd lasix 3. DVT proph: anticoagulated. Code Visit Inpatient E&M: 95430 Subs Hosp L2
--- NOTE | 2017-10-29 13:06 | PN_ITS ---
Patient Problems: Active and Suspected Problems Atrial fibrillation with RVR (Acute) CHF (congestive heart failure) (Acute) Subjective: Breathing better. Never had any LE edema. Vitals/I&O's: Vital Signs Temp Pulse Resp BP Pulse Ox 36.7 C 92 20 H 116/82 H 92 10/29/17 08:00 10/29/17 12:00 10/29/17 12:00 10/29/17 12:00 10/29/17 12:00 Oxygen Flow Rate 2 Oxygen Delivery Method Room Air Weight: 119.9 kg Body Mass Index (BMI) 44.6 Intake and Output for Last 24 Hours 10/27/17 10/28/17 10/29/17 23:59 23:59 23:59 Intake Total 120 / 120 1213 / 1213 Output Total 1500 / 1500 500 / 500 Balance -1380 / -1380 713 / 713 General: Alert, Cooperative, No apparent distress HEENT: Atraumatic, Normocephalic Neck: No JVD, No Nodes, Thyroid Normal Size and Texture Lungs: Clear to auscultation, Normal air movement, No rhonchi, No wheeze Cardiovascular: Normal S1, Normal S2, Irregular Rate Abdomen: Bowel Sounds Present, Soft, Non Tender, Non-Distended, No Hepato- splenomegaly, Obese Extremities: No edema, No Calf Tenderness Skin: No rashes, No breakdown Musculoskeletal: No Tenderness to Palpation of Joints or Extremities, No Muscle Wasting Psych/Mental Status: Normal Affect, Appropriate Laboratory Results 10/28/17 18:45: Troponin I < 0.02 10/28/17 18:45: PT 13.8, INR 1.1, APTT 48.1 H 10/28/17 22:06: Troponin I < 0.02 10/29/17 01:13: APTT 249.2 H* 10/29/17 04:42: WBC 7.5, RBC 4.95, Hgb 14.4, Hct 43.6, MCV 88.1, MCH 29.1, MCHC 33.0, RDW 14.5, RDW Differential 46.3 H, Plt Count 212, MPV 10.8 10/29/17 04:42: Sodium 143, Potassium 3.7, Chloride 108 H, Carbon Dioxide 25.0, Anion Gap 10, BUN 14, Creatinine 0.92, Estim Creat Clear Calc 55.59, Est GFR ( MDRD) Af Amer 79, Est GFR (MDRD) Non-Af 65, BUN/Creatinine Ratio 15.2, Glucose 109 H, Calcium 8.7, Triglycerides 126, Cholesterol 176, LDL Cholesterol 109, VLDL Cholesterol 25, HDL Cholesterol 42 10/29/17 04:42: Troponin I < 0.02 10/29/17 05:58: APTT 79.0 H 10/29/17 12:05: APTT 89.3 H Current Medications Aspirin (Aspirin) 325 mg PO DAILY@0800 [facility] Last Admin: 10/29/17 09:38 Dose: 325 mg Bisacodyl (Dulcolax) 5 mg PO DAILY PRN PRN PRN Reason: Constipation Famotidine (Pepcid) 20 mg PO BID [facility] Last Admin: 10/29/17 09:38 Dose: 20 mg Heparin Sodium (Porcine) () 0 units IV UD PRN PRN Reason: Protocol Diltiazem HCl 125 mg/ Dextrose 125 mls @ 5 mls/hr CONT INF .Q25H [facility] PRN Reason: 5 MG/HR Last Admin: 10/29/17 09:46 Dose: 5 mls/hr Heparin Sodium/Dextrose () 25,000 units in 250 mls @ 16 mls/hr IV .[id number] [facility] ; As Directed PRN Reason: Protocol Last Admin: 10/28/17 19:18 Dose: 16 mls/hr Lisinopril (Zestril) 10 mg PO BID [facility] Last Admin: 10/29/17 09:38 Dose: 10 mg Magnesium Hydroxide (Milk Of Magnesia) 30 ml PO DAILY PRN PRN Reason: Constipation Ondansetron HCl (Zofran) 4 mg IV Q8H PRN PRN PRN Reason: NAUSEA Sodium Chloride () 5 - 30 ml IV UD PRN PRN Reason: SALINE FLUSH Last Admin: 10/29/17 09:39 Dose: 10 ml Zolpidem Tartrate (Ambien (Generic)) 5 mg PO QHS PRN PRN PRN Reason: INSOMNIA Assessment/Plan Active and Suspected Problems Atrial fibrillation with RVR (Acute) CHF (congestive heart failure) (Acute) 1. Afib w RVR * now rate-controlled * CHADS VASc = 2 * on cardizem gtt * DW Dr. [place]: change dilt to PO 180 BID and dc hep and start eliquis * check chemical stress in AM. 2. HFpEF * improving. * rec'd lasix 3. DVT proph: anticoagulated. Code Visit Inpatient E&M: 64730 Subs Hosp L2
[2017-10-29] MEDS: dilTIAZem 60 MG CAP.SR.12H 180 MG PO ×2 (14:03→21:17)
[2017-10-29] MEDS: APIXABAN 5 MG TABLET PO ×2 (14:03→21:19)
[2017-10-30] VITALS (7 sets, daily range): BP systolic 123–125; BP diastolic 57–75; PULSE 61–95; RESP 16–20; TEMP 36.6–36.8; O2SAT 93–96
[2017-10-30 03:55] LABS: Hematocrit 42.8 % (37-47); Hemoglobin 14.4 g/dl (12.0-15.0); Mean Corp Hgb Conc 33.6 g/gl (32-36); Mean Corpuscular Hgb 29.7 pg (27.0-32.0); Mean Corpuscular Volume 88.2 fL (81-99); Platelet Count 224 K/mm3 (150-450); RBC Distribution Width CV 14.9 % (11.6-14.6); Red Blood Count 4.85 M/mm3 (4.2-5.4); Scan Indicated on CBC? Y/N NO; White Blood Count 7.5 K/mm3 (4.4-11.0)
[2017-10-30 03:58] LABS: International Normalized Ratio 1.3
[2017-10-30 03:59] LABS: Partial Thromboplast Time 54.3 Seconds (24.1-36.2)
--- NOTE | 2017-10-30 04:00 | EKG12_ITS ---
Test Reason : AM EKG Blood Pressure : / mmHG Vent. Rate : 071 BPM Atrial Rate : 208 BPM P-R Int : 000 ms QRS Dur : 082 ms QT Int : 458 ms P-R-T Axes : 000 -18 -37 degrees QTc Int : 497 ms Atrial fibrillation Nonspecific T wave abnormality Abnormal ECG When compared with ECG of 29-OCT-2017 05:18, MANUAL COMPARISON REQUIRED, DATA IS UNCONFIRMED Confirmed by LORI CANAS, LAZ ([id number]), film or videotape editor SHANELLE SAMS ([id number]) on 10/31/2017 10:36:40 AM Referred By: KIKA Confirmed By:LAZ SANDOVAL MD
[2017-10-30 04:10] LABS: Anion Gap 8 (5-15); BUN 19 mg/dL (7-18); BUN/Creat Ratio 19.7 RATIO (10-20); Calcium,Total 8.6 mg/dL (8.5-10.1); Chloride 109 mmol/L (98-107); Creatinine, Serum 0.96 mg/dL (0.55-1.02); EST Glomerular Filtration Rate 62 mL/min (>60); Est Glom Filt Rate - Afr Amer 75 mL/min (>60); Estimated Creatinine Clearance 53.27 ml/min; Glucose 110 mg/dL (74-106); Potassium 3.7 mmol/L (3.5-5.1); Sodium Level 144 mmol/L (136-145)
[2017-10-30] MEDS: Aspirin 325 MG Tablet PO (06:32)
[2017-10-30] MEDS: Lisinopril 10 MG Tablet PO (06:32)
--- NOTE | 2017-10-30 09:00 | NURSING ---
unable to complete vital signs on time per [facility] at this time d/t patient being off floor at procedure
[2017-10-30] MEDS: Famotidine 20 MG Tablet PO (10:37)
[2017-10-30] MEDS: dilTIAZem 60 MG CAP.SR.12H 180 MG PO (10:37)
--- NOTE | 2017-10-30 10:41 | CASEMGMT ---
[facility] Rx assist completed at this time by Ana REYNOSO. Call to Arebn in [facility] pharmacy and he is aware of Rx assist at this time, voices understanding. Copy of Rx assist tubed to [facility] pharmacy at this time. Yue THOMAS CM
--- NOTE | 2017-10-30 13:02 | STRESSREP_ITS ---
Stress Test Report Date: 10/30/2017 Procedure: Hologic stress nuclear imaging study Indications: Atrial fibrillation; CHF Consent: Per the patient Procedure: The patient underwent pharmacologic (Regadenoson) evaluation with a peak heart rate of 115 bpm (73% predicted maximal heart rate) with a peak blood pressure 140/88 mmHg. The baseline ECG demonstrated atrial fibrillation. The peak pharmacologic ECG demonstrates no obvious ECG changes. There were no additional cardiac dysrhythmias pretest, during pharmacologic infusion, or recovery. There was no complaints of chest discomfort during pharmacologic infusion or recovery. The examination was discontinued secondary to completion of protocol. Impression: 1. Pharmacologic (Regadenoson) evaluation 2. Peak pharmacologic ECG with no obvious ECG changes 3. Nuclear images pending Myocardial perfusion imaging study: Technique: The patient was injected with 15.0 mCi of technetium 99m Cardiolite and subsequently rest SPECT Cardiolite nuclear imaging was obtained in the horizontal long, vertical long, and short axis views. The patient underwent pharmacologic (Regadenoson) evaluation with a peak heart rate of 115 bpm (73% predicted maximal heart rate) with a peak blood pressure 140/88 mmHg the patient was injected with 44.0 mCi of technetium 99m Cardiolite and subsequently stress SPECT Cardiolite nuclear imaging was obtained in the horizontal long, vertical long, and short axis views. A gated Cardiolite study at peak stress was obtained. Interpretation: Rest and stress SPECT Cardiolite nuclear imaging status post realignment, normalization, and attenuation correction, demonstrates the appearance of relative uniform tracer uptake and myocardial perfusion appearing within normal limits. There is end systolic thickening and brightening. The gated Cardiolite study demonstrates myocardial thickening and inward wall motion. The reported LVEF is 56%. Impression: 1. Rest and stress SPECT cardiac nuclear imaging demonstrates the appearance of relative uniform tracer uptake and myocardial perfusion appearing within normal limits. 2. The gated Cardiolite study reports an LVEF of 56%. This note was generated with [employer] software. It may contain incorrect words, spelling, and punctuation that were not noted in checking the note before signing.
--- NOTE | 2017-10-30 13:06 | PCM.DC ---
- Discharge Diagnoses Current Active Problems: Current Active and Chronic Problems Atrial fibrillation with RVR (Acute) CHF (congestive heart failure) (Acute) HTN (hypertension) (Chronic) You will use the following diet at home:: Cardiac Discharge Activity: Return to Normal Activity Call your doctor if you observe: Shortness of breath, Dizziness, Swelling in the ankles, Chest pain, Increased palpitations (irregular heartbeat) Allergies/Adverse Reactions: Allergies No Known Allergies Allergy (Verified 10/28/17 13:17) Medications to take at Discharge Biotin 1 tab PO DAILY 10/28/17 Cholecalciferol (Vitamin D3) [Vitamin D3] 5,000 unit PO BID 10/28/17 Krill Oil 500 mg PO DAILY 10/28/17 Multivitamin [Multiple Vitamins] 1 each PO DAILY 10/28/17 Apixaban [Eliquis] 5 mg PO BID #60 tab 10/30/17 Diltiazem SR [Cardizem Sr] 180 mg PO Q12 #180 cap.sr.12h 10/30/17 Lisinopril [Zestril] 10 mg PO BID #60 tab 10/30/17 The following prescriptions were given: Diltiazem SR [Cardizem Sr] 180 mg PO Q12 #180 cap.sr.12h Apixaban [Eliquis] 5 mg PO BID #60 tab Lisinopril [Zestril] 10 mg PO BID #60 tab Primary Care Physician: NOT,DEFINED [NON-STAFF] - Please Follow Up With: Joon Shrestha MD When: as scheduled Please Follow Up With: Debby Diaz MD - Establishing new PCP When: 1-2 Weeks Proposed Discharge Date: 10/30/17
--- NOTE | 2017-10-30 13:12 | CASEMGMT ---
Patient has an appt with Dr Sherstha Jan 05. She will be out her her 30 day supply of Eliquis by then. ANGELES called Dr Shrestha's office and spoke with Lashawn. She said patient could come in with the prescription assistance application and Dr Shrestha's secretary to board of commissioners could help with this completion and getting physician to sign it. SW wrote down this information and gave it to patient. SW also told her this information. ANGELES encouraged her to get signed up with [facility] or [facility] for a PCP as well. She thanked ANGELES for the information. Sheryl [facility] TECHNICIAN
--- NOTE | 2017-10-30 13:18 | PCM.DC.SUM ---
<Mulu Banegas - Last Filed: 10/30/17 13:38> Discharge Date and Diagnosis - Problem List Patient Problems: Active and Suspected Problems Heart failure with preserved ejection fraction (Acute) Atrial fibrillation with RVR (Acute) Date of Admission: 10/28/17 Date of Discharge: 10/30/17 - Primary Discharge Diagnosis Active and Suspected Problems Atrial fibrillation with RVR (Acute) Acute diastolic CHF (congestive heart failure) (Acute) - Secondary Discharge Diagnosis Chronic Problems HTN (hypertension) (Chronic) Hospital Course and Treatment Imaging Results: Diagnostic Data Chest X-Ray 10/28/17 13:41 IMPRESSION: Mild CHF with blunting of both costophrenic angles. Cardiomegaly. Electronically Signed: Alvaro Palacio MD at 14:06 EST Tel [phone], Service support , Dr. Shrestha- Cardiology Operations: None Procedures: 2-D Echocardiogram, Stress test Summary of Care Provided: The patient is a 62 year old F admitted 10/28/2017 due to palpitations and abdominal pain. She has a past medical history of atrial fibrillation and hypertension. She was found to be in atrial fibrillation with RVR and new diagnosis heart failure with preserved ejection fraction. Cardiology was consulted. Patient was started on Cardizem SR 180 mg twice daily, lisinopril 10 mg twice daily and Eliquis 5 mg twice daily. Patient has remained in atrial fibrillation however her rate has been controlled. She will follow-up with Dr. Shrestha as outpatient with possible cardioversion in the future. Patient underwent nuclear stress test which was negative for ischemia. Echocardiogram showed an estimated ejection fraction of 60%, mild to moderate left atrial enlargement, mild to moderate mitral valve insufficiency, mild tricuspid valve insufficiency, RVSP estimated to be 32 mmHg. Patient denies chest pain, palpitations. Denies shortness of breath. Patient seen and examined prior to discharge. Heart rhythm atrial fibrillation with controlled rate, no murmur. Lungs clear. Abdomen soft, nontender. Neuro grossly intact. Vital signs stable. Patient is stable for discharge home with recommendations as noted above. She will follow-up with primary care physician and cardiology. This patient was seen by MANINDER Canales under the supervision of Dr. Burdick. Discharge Diet: Low fat/ Low Cholesterol Discharge Activity: Return to Normal Activity Call your doctor if you observe: Shortness of breath, Dizziness, Swelling in the ankles, Chest pain, Increased palpitations (irregular heartbeat) Home Medications: Medications to take at Discharge Biotin 1 tab PO DAILY 10/28/17 Cholecalciferol (Vitamin D3) [Vitamin D3] 5,000 unit PO BID 10/28/17 Krill Oil 500 mg PO DAILY 10/28/17 Multivitamin [Multiple Vitamins] 1 each PO DAILY 10/28/17 Apixaban [Eliquis] 5 mg PO BID #60 tab 10/30/17 Diltiazem SR [Cardizem Sr] 180 mg PO Q12 #180 cap.sr.12h 10/30/17 Lisinopril [Zestril] 10 mg PO BID #60 tab 10/30/17 Following Prescrptions Were Given to Patient: Diltiazem SR [Cardizem Sr] 180 mg PO Q12 #180 cap.sr.12h Apixaban [Eliquis] 5 mg PO BID #60 tab Lisinopril [Zestril] 10 mg PO BID #60 tab Primary Care Physician: NOT,DEFINED [NON-STAFF] - Please Follow Up With: Joon Shrestha MD When: as scheduled Please Follow Up With: Debby Diaz MD - Establishing new PCP When: 1-2 Weeks Disposition: Home Minutes spent on discharge:: 35 Patient Condition:: Stable Meaningful Use Info Meaningful Use Diagnoses (Choose all that apply): CHF - CHF GRAYSON/ARB ordered at discharge?: Yes Documented LVEF (%): 60 <Conor Burdick - Last Filed: 10/30/17 14:52> Discharge Date and Diagnosis - Secondary Discharge Diagnosis Chronic Problems HTN (hypertension) (Chronic) Hospital Course and Treatment Imaging Results: 10/30/17 06:00 Nuclear Stress Test - Chemical [NM] Routine Operations: None Procedures: 2-D Echocardiogram Summary of Care Provided: Seen and examined in family. Agree the above note by the nurse practitioner. A 62-year-old female presents with palpitations as well as heart failure. Patient was found to be in atrial fibrillation with RVR and was started on Cardizem drip. Yesterday, on the , patient was transitioned over to Cardizem SR 180 mg twice daily patient was also noted to be in heart failure. May been related with H fibrillation. Echocardiogram showed an ejection fraction of 60%, so those heart failure with preserved ejection fraction. Patient overall is doing well. Patient did undergo a stress test today to evaluate for any coronary disease to which she did not have. Patient will be discharged. Physical exam Vital Signs Height 1.66 m Weight: 119.2 kg Weight in Pounds 262.8 lbs Pulse Ox 96 Temperature 36.6 C Pulse Rate 95 Respiratory Rate 20 Blood Pressure [BP] 117/74 Blood Pressure 123/57 Blood Pressure Position [BP] Semi-Fowlers Blood Pressure Position Semi-Fowlers No acute distress. Afebrile. Heart is regular rate, irregular rhythm. Lungs are clear to auscultation bilaterally. [] Discharge Diet: Low fat/ Low Cholesterol Discharge Activity: Return to Normal Activity Disposition: Home Minutes spent on discharge:: 35 Patient Condition:: Stable Meaningful Use Info Meaningful Use Diagnoses (Choose all that apply): CHF - CHF GRAYSON/ARB ordered at discharge?: Yes Documented LVEF (%): 60
[2017-10-30] MEDS: APIXABAN 5 MG TABLET PO (13:22)
--- NOTE | 2017-10-30 18:30 | PCM.PN.CARD ---
Subjectve: The patient was evaluated earlier this day at that time she had no ongoing concerns of chest discomfort or worsening shortness of breath/dyspnea. Objective: Vital Signs Temp Pulse Resp BP Pulse Ox 97.9 F 95 20 H 123/57 H 96 10/30/17 10:35 10/30/17 11:13 10/30/17 10:35 10/30/17 10:35 10/30/17 10:35 Oxygen Flow Rate 2 Oxygen Delivery Method Room Air Weight: 262 lb 12.656 oz Body Mass Index (BMI) 44.6 Intake and Output for Last 24 Hours 10/28/17 10/29/17 10/30/17 23:59 23:59 23:59 Intake Total 120 / 120 1504.5 / 1504.5 60 / 60 Output Total 1500 / 1500 500 / 500 Balance -1380 / -1380 1004.5 / 1004.5 60 / 60 General: Awake, Alert, Oriented x 3, Cooperative, No Acute Distress Neck: No JVD Lungs: Clear to auscultation Cardiovascular: Irregular Rhythm, Normal S1, Normal S2 Abdomen: Bowel Sounds Present, Soft, Non Tender Extremities: No edema 10/30/17 03:44: WBC 7.5, RBC 4.85, Hgb 14.4, Hct 42.8, MCV 88.2, MCH 29.7, MCHC 33.6, RDW 14.9 H, RDW Differential 47.0 H, Plt Count 224, MPV 11.0 10/30/17 03:44: Sodium 144, Potassium 3.7, Chloride 109 H, Carbon Dioxide 27.0, Anion Gap 8, BUN 19 H, Creatinine 0.96, Est GFR (MDRD) Af Amer 75, Est GFR (MDRD) Non-Af 62, BUN/Creatinine Ratio 19.7, Glucose 110 H, Calcium 8.6 10/30/17 03:44: PT 16.0 H, INR 1.3, APTT 54.3 H Rhythm: Atrial fibrillation Stress Test: Pharmacologic stress nuclear imaging study: Considered negative for stress-induced myocardial ischemia Assessment/Plan 1. Atrial fibrillation with rapid ventricular response At the present time the patient remains in atrial fibrillation. The etiology of her atrial fibrillation may be multifactorial. This could be related to hypertension. She has now undergone evaluation with respect and noninvasive studies. There was no evidence of an obvious underlying cardiomyopathy or evidence of stress-induced myocardial ischemia to suggest CAD. She has continued medical therapy. This is included rate control therapy and anti-coagulant therapy. Her medications will be adjusted. The tentative plan is for continued rate control therapy and anticoagulant therapy for period of time and if the patient does not regain sinus rhythm did consider synchronized biphasic DC cardioversion. The patient has been told that depending upon her clinical course she may need additional evaluation with antiarrhythmic therapy and/or consideration for EP consultation for possible EPS/RFA. 2. Congestive heart failure She does have signs and symptoms compatible with underlying CHF. This may be secondary to her atrial fibrillation with rapid ventricular response and a possible tachycardic induced event. However, other etiologies cannot be excluded. He has demonstrated improvement. She will continue medical therapy with diuretic therapy and potassium replacement. 3. Hypertension S/P post initiation of medical therapy her blood pressure appears to be coming under better control. All, the patient will continue medical management. She will be scheduled for future outpatient cardiovascular visit. She was told in the interim if she has any worsening symptoms or concerns that she needs to return to the hospital for further evaluation and care. Comment: The above was discussed and reviewed with the patient the [facility] hospitalist staff.. This note was generated with [employer] software. Every effort was made to ensure accuracy, however, computerized countersinker mistakes may persist.
--- NOTE | 2017-10-30 18:36 | PN.CARD_ITS ---
Subjectve: The patient was evaluated earlier this day at that time she had no ongoing concerns of chest discomfort or worsening shortness of breath/dyspnea. Objective: Vital Signs Temp Pulse Resp BP Pulse Ox 97.9 F 95 20 H 123/57 H 96 10/30/17 10:35 10/30/17 11:13 10/30/17 10:35 10/30/17 10:35 10/30/17 10:35 Oxygen Flow Rate 2 Oxygen Delivery Method Room Air Weight: 262 lb 12.656 oz Body Mass Index (BMI) 44.6 Intake and Output for Last 24 Hours 10/28/17 10/29/17 10/30/17 23:59 23:59 23:59 Intake Total 120 / 120 1504.5 / 1504.5 60 / 60 Output Total 1500 / 1500 500 / 500 Balance -1380 / -1380 1004.5 / 1004.5 60 / 60 General: Awake, Alert, Oriented x 3, Cooperative, No Acute Distress Neck: No JVD Lungs: Clear to auscultation Cardiovascular: Irregular Rhythm, Normal S1, Normal S2 Abdomen: Bowel Sounds Present, Soft, Non Tender Extremities: No edema 10/30/17 03:44: WBC 7.5, RBC 4.85, Hgb 14.4, Hct 42.8, MCV 88.2, MCH 29.7, MCHC 33.6, RDW 14.9 H, RDW Differential 47.0 H, Plt Count 224, MPV 11.0 10/30/17 03:44: Sodium 144, Potassium 3.7, Chloride 109 H, Carbon Dioxide 27.0, Anion Gap 8, BUN 19 H, Creatinine 0.96, Est GFR (MDRD) Af Amer 75, Est GFR (MDRD ) Non-Af 62, BUN/Creatinine Ratio 19.7, Glucose 110 H, Calcium 8.6 10/30/17 03:44: PT 16.0 H, INR 1.3, APTT 54.3 H Rhythm: Atrial fibrillation Stress Test: Pharmacologic stress nuclear imaging study: Considered negative for stress-induced myocardial ischemia Assessment/Plan 1. Atrial fibrillation with rapid ventricular response At the present time the patient remains in atrial fibrillation. The etiology of her atrial fibrillation may be multifactorial. This could be related to hypertension. She has now undergone evaluation with respect and noninvasive studies. There was no evidence of an obvious underlying cardiomyopathy or evidence of stress-induced myocardial ischemia to suggest CAD. She has continued medical therapy. This is included rate control therapy and anti-coagulant therapy. Her medications will be adjusted. The tentative plan is for continued rate control therapy and anticoagulant therapy for period of time and if the patient does not regain sinus rhythm did consider synchronized biphasic DC cardioversion. The patient has been told that depending upon her clinical course she may need additional evaluation with antiarrhythmic therapy and/or consideration for EP consultation for possible EPS/RFA. 2. Congestive heart failure She does have signs and symptoms compatible with underlying CHF. This may be secondary to her atrial fibrillation with rapid ventricular response and a possible tachycardic induced event. However, other etiologies cannot be excluded. He has demonstrated improvement. She will continue medical therapy with diuretic therapy and potassium replacement. 3. Hypertension S/P post initiation of medical therapy her blood pressure appears to be coming under better control. All, the patient will continue medical management. She will be scheduled for future outpatient cardiovascular visit. She was told in the interim if she has any worsening symptoms or concerns that she needs to return to the hospital for further evaluation and care. Comment: The above was discussed and reviewed with the patient the [facility] hospitalist staff.. This note was generated with [email or web address] D[employer] software. Every effort was made to ensure accuracy, however, computerized cylinder grinder mistakes may persist.
== END 2017-10-30 15:10 | disposition home or self-care (01) | DRG 308 ==
LOC: ED 14:14 → PCU 17:24
PROVIDERS: Internal Medicine Cardiovascular Disease; Admitting Provider Hospitalist; Emergency Provider Emergency Medicine
DX: I48.91 Unspecified atrial fibrillation (principal); I50.31 Acute diastolic (congestive) heart failure; Z68.41 Body mass index [BMI] 40.0-44.9, adult; I11.0 Hypertensive heart disease with heart failure; E66.9 Obesity, unspecified
CPT/HCPCS: 36415; 71045; 78452; 80048; 80053; 80061; 83880; 84443; 84484; 85025; 85027; 85610; 85730; 93005; 93017; 93306; 99285; A9500; J7030; A4216; J1940; J2785

== ENCOUNTER → 2024-02-12 | Outpatient (CLI) | payer MEDICARE, OTHER, SELFPAY ==
[2024-02-18 12:10] LABS: HPV APTIMA, High Risk Negative (Negative)
== END | disposition home or self-care (01) ==
PROVIDERS: Referring Provider Obstetrics & Gynecology; Visit Provider Obstetrics & Gynecology
DX: Z12.4 Encounter for screening for malignant neoplasm of cervix (principal); N95.0 Postmenopausal bleeding
CPT/HCPCS: 87624; 88175; G0145

== ENCOUNTER → 2024-02-13 | Outpatient (CLI) | payer MEDICARE, OTHER, SELFPAY ==
--- NOTE | 2024-02-12 | IMM_PTH ---
PATIENT: SHERRY BARNES LOC: [facility] U#:[id number] AGE/SX: 68/F ROOM: RE02/13/[address]: Dr. Bessie Childress DO : 1955 BED: DIS: 02/13/2024 SPEC #: [id number] RECD: 02/16/24 10:32 STATUS: PRINCE REQ #: [id number] MARIANNA: 02/12/24 00:[address]: Bessie Childress DEPT: IMMUNOHISTOCHEMISTRY RECD BY: Perfecto Del Castillo ENTERED: 02/16/24 10:34 SP TYPE: IMMUNO OTHR DR: Dr. Charleen Zurita MD Tissues: Endometrium, NOS Procedures: P53 (initial) MSH2 (add) MLH-1 (add) MSH6 (add) Anti-PMS2 (add) KI-67 (add) HER-2-ANGEL (initial) PHYSICIAN & INSTITUTION [place] [id number] SPECIMEN INFORMATION: Tissue Source: Endometrial biopsy Clinical Info: Post-menopausal bleeding Specimen Number: [id number] CPT code: 06501,36172f5 METHODOLOGY: Deparaffinized sections of prefer/formalin-fixed tissue or PAP/DQ stained slides are incubated with monoclonal/polyclonal antibodies/oligonucleotide probes. Localization is made via biotin free immunoperoxidase method. Appropriate controls are performed and reacted as expected. Results on target cell population are indicated in the following table: RESULTS: ANTIBODY / CLONE RESULT Her-2neu (CB11) 1- 2+ (equivocal) MLH1 (M1) negative MSH2 (25D12) positive MSH6 (44) positive PMS2 (WWI2357) positive P53 (DO-7) positive, focal (wild type pattern) Ki-67 (30-9) positive, high IN SITU HYBRIDIZATION (IVY) FOR HER2 Interpretation: Negative/Not Amplified HER2:CEP-17 Ratio: 1.11 Average HER2 Signal: 1.95 Average CEP-17 Signal: 1.75 Number of Tumor Cells Scanned: 50 Interpretative Information: The INFORM HER2 Dual IVY DNA Probe Cocktail assay is performed on formalin-fixed paraffin embedded tissue and determines HER2 gene status by detecting HER2 copies via silver in situ hybridization (SISH) and Chromosome 17 copies via chromogenic red in situ hybridization on tumor cells. A minimum of 20 cells representing > 10% of contiguous and homogeneous invasive tumor cells were analyzed. HER2 gene status is classified as Non-amplified (HER2/Chr17 ratio < 2.0) or Amplified (HER2/Chr17 ratio greater than or equal to 2.0). If the resulting HER2/Chr17 ratio falls within 1.8 - 2.2 (Borderline), retesting by FISH is recommended. Reference: Kiesha AC, Maria L PUCKETT, Jourdan DG, et al: Recommendations for Human Epidermal Growth Factor Receptor 2 Testing in Breast Cancer: [place] Society of Clinical Oncology / [employer] Clinical Practice Guideline Update. J Clin Oncol 31:1398-1070, 2013. INTERPRETATION: Endometrial lining, biopsy: Endometrial adenocarcinoma. Positive (loss of mismatch protein; microsatellite instability detected). Complete loss of MLH1. KERRY/mr 02/17/24
--- NOTE | 2024-02-12 14:45 | EMB_PTH ---
PATIENT: SHERRY BARNES LOC: [facility] U#:[id number] AGE/SX: 68/F ROOM: RE02/13/[address]: Dr. Bessie Childress DO : 1955 BED: DIS: 02/13/2024 SPEC #: [id number] RECD: 02/12/24 16:18 STATUS: PRINCE [place] #: [id number] MARIANNA: 02/12/24 14:[address]: Bessie Childress DEPT: SURGICAL PATHOLOGY RECD BY: Mona Gaytan ENTERED: 02/13/24 09:44 SP TYPE: ENDOM BX/C YANDEL DR: Dr. Charleen Zurita MD Tissues: Endometrium, NOS Procedures: Surgery Specimen Level IV HEADER OPERATION: Endometrial biopsy PRE-OP DIAGNOSIS: Post-menopausal bleeding TISSUE SUBMITTED: Endometrial lining MICROSCOPIC DIAGNOSIS Endometrial biopsy: Endometrial adenocarcinoma, endometrial type, FIGO grade 2. See comment. KERRY/mr 02/16/24 COMMENT Immunohistochemistry ([id number]) for microsatellite instability (mismatch repair of protein) will be performed and the results will be reported separately. Case has been reviewed in consultation with Dr. France who concurs with the above diagnosis. IDC:AM MICROSCOPIC DESCRIPTION Slides are reviewed. GROSS DESCRIPTION Received in fixative is one container labeled with the patient's name and designated Endometrial biopsy. The specimen consists of multiple irregular fragments of light newberry soft tissue measuring in aggregate 2.2 x 1.6 x 0.1cm. The specimen is totally submitted in one cassette. AM/ 02/13/2024 TC:0 CPT:64528
--- NOTE | 2024-02-13 08:40 | US_ITS ---
STUDY: ULTRASOUND OF THE FEMALE PELVIS - COMPLETE REASON FOR EXAM: Female, 68 years old. AUB -- POST MENOPAUSAL X 25 YEARS -- PATIENT HAS HAD BLEEDING 4 TIMES INTHE LAST 3 MONTHS LMP: Patient is postmenopausal. TECHNIQUE: Transabdominal and Transvaginal TECHNICAL QUALITY: Adequate. COMPARISON: None. FINDINGS: The uterus is anteverted and is in a midline position. The uterus measures 10 cm x 6.1 cm x 5 cm. There is a Nabothian cyst of the cervix. The endometrium is thickened and measures 23 mm in thickness, and is hyperechoic. There is no demonstrated endometrial mass. There is no demonstrated myometrial mass. I.U.D. - The patient does not have an I.U.D. The right ovary is non-visualized. The left ovary is non-visualized. There is no fluid in the cul-de-sac. The pre void volume of the bladder was 44 ml. US/Pelvic w/ Transvaginal IMPRESSION: Enlarged uterus. Thickened endometrium. Electronically Signed: Alvaro Palacio MD at 11:02 EDT ,
== END | disposition home or self-care (01) ==
LOC: OPUS 08:39
PROVIDERS: PCP Internal Medicine; Referring Provider Obstetrics & Gynecology; Visit Provider Obstetrics & Gynecology
DX: N95.0 Postmenopausal bleeding (principal)
CPT/HCPCS: 76830; 76856; 88305; 88341; 88342